=== PATIENT | female | born 1965 | race Caucasian/White ===

== ENCOUNTER 2019-12-17 19:35 | Emergency (ER) | payer SELFPAY ==
[2019-12-17 19:51] VITALS: BP 127/66; PULSE 98
[2019-12-17] MEDS ORDERED: Sodium Chloride 0.9% 10 ML Syringe FLUSH PRN (20:03)
[2019-12-17] MEDS ORDERED: Sodium Chloride 0.9% 1,000 ML IV ONE (20:03)
[2019-12-17] MEDS ORDERED: Ondansetron 4 MG/2 ML SDV IVPUSH ONE (20:03)
[2019-12-17] MEDS ORDERED: HYDROmorphone 0.5 MG/0.5 ML Syringe IVPUSH ONE ×2 (20:03→22:08)
--- NOTE | 2019-12-17 20:12 | EDM.PDOC ---
<Seema Hansen Donna - Last Filed: 12/17/19 22:29> ED HPI GENERAL MEDICAL PROBLEM - General Chief Complaint: General Stated Complaint: NECK PAIN Time Seen by Provider: 12/17/19 19:48 Source of Information: Reports: Patient, RN Notes Reviewed History Limitations: Reports: No Limitations - History of Present Illness INITIAL COMMENTS - FREE TEXT/NARRATIVE: Patient is a 54-year-old female who presents to the ED for evaluation of a neck issue. 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 Andry Rouse ENT from the dates 11/28/2019- 12/04/2019. She had a recent follow up visit and returned to [place] 12/15/2019. She notes she does have an appointment with Dr. Connolly, her oncologist Thursday, to discuss plan of care for radiation therapy. She also states that she is to have a G-tube placed for meds and nutrition. Patient notes however today, that the incision on her neck seems to be widening, and is dehiscent, and she is noticing some green drainage on the bandages when she removes them. She states that she also had a tracheotomy, and this is healing. She was supposed to have a NG tube placed for sustenance, but this became clogged, and she sneezed on the way home from the [facility], it became dislodged. She has been using boost, applesauce, and water for nutrition and this seems to be going well for her. Patient notes that she does have some pain and redness in the left lateral leg, where they had to take a bone graft to replace part of the mandible. She states the leg is causing most of the pain, and the neck wound is not very painful. Patient herself denies any fever/chills, cough/shortness of breath, nausea/vomiting/diarrhea. 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 recent surgery 2019 wide local excision left retromolar trigone mandible, mandiblectomy, partial left neck dissection, tracheostomy, free flap fibula Other Respiratory Surgeries/Procedures: recent trracheostomy Female Surgical History: Reports: Tubal Ligation Musculoskeletal Surgical History: Reports: Other (See Below) Other Musculoskeletal Surgeries/Procedures:: recent bone graft from left fibula Social & Family History - Tobacco Use Years of Tobacco use: 30 Used Tobacco, but Quit: Yes Month/Year Tobacco Last Used: November 27 2019 - Caffeine Use Caffeine Use: Reports: Coffee, Energy Drinks, Soda - Recreational Drug Use Recreational Drug Use: No ED ROS GENERAL - Review of Systems Review Of Systems: Comprehensive ROS is negative, except as noted in HPI. ED EXAM, GENERAL - Physical Exam Exam: See Below Exam Limited By: No Limitations General Appearance: Alert, WD/WN, No Apparent Distress Nose: Normal Inspection Throat/Mouth: Normal Inspection, Normal Lips, Normal Oropharynx Head: Atraumatic, Normocephalic Neck: Supple, Non-Tender, Other (There is a incision to the left anterior neck, the beginning of the incision, and the end of the incision does seem to be parting, and dehiscent, there is some green/padgett purulent drainage coming from the wounds. This is somewhat malodorous. Patient notes this is not painful. The areas that are open, are roughly 3 to 5 cm in length.) Respiratory/Chest: No Respiratory Distress, Lungs Clear, Normal Breath Sounds, No Accessory Muscle Use, Chest Non-Tender Extremities: Normal Range of Motion, Normal Capillary Refill, Leg Pain (Left distal lateral cart[place]a, healing surgical wound, with surrounding erythema and tenderness. No obvious drainage noted in this area patient notes this is tender to the touch.) Neurological: Alert, Oriented, Normal Cognition, No Motor/Sensory Deficits Psychiatric: Normal Affect, Normal Mood Skin Exam: Warm, Dry, Normal Color, No Rash, Other (See extremity and neck exam for further detail) Course - Re-Assessments/Exams Free Text/Narrative Re-Assessment/Exam: 12/17/19 20:13 Patient presents to the ED for the evaluation of her neck wound, and pain in her left lateral leg. She does appear to have a cellulitis on the left leg, and her neck wound is dehiscent, with green/padgett purulent drainage noted, that is somewhat malodorous. I will discuss the case with Dr. Zhou for further management of the wounds on her neck. 12/17/19 21:09 Labs are fairly unremarkable, her WBC count is not elevated, metabolic panel looks okay. The ENT that did her surgery at [facility] was Andry Rouse. I am placing a call to the surgeon to discuss the case, as Dr. Zhou recommends transfer as this is a fresh surgical wound that has infection and may need debrided by the surgeon that did her initial surgery. I also do agree that the patient would be best served under the care of her surgeon for this complicati on. 12/17/19 21:49 I was able to talk with Dr. Carson Jose, he is part of Dr. Rouse's team at [facility], he states that the patient has been given a prescription for Augmentin, and she should continue this for 2 weeks, she is to be n.p.o., so he requests that we place an NG tube, until she can get her G-tube placed. He is requesting that we packed the wounds with iodoform gauze, and that she perform bandage changes twice daily. She is to be closely monitored, and should try to line up appointments with ENT in [place] to make sure that the wounds are healing appropriately. Patient notes that she does have a appointment with Dr. Connolly on Thursday, so she will have a clinic appointment then. Dr. Jose states if she is failing the Augmentin, into next week, then she can be placed on IV outpatient therapy for management. 12/17/19 22:09 At this time we will have nursing staff do outpatient wound management to the ER, tomorrow and possibly Thursday, and try to line something up with home health otherwise. We did do a [id number] meeting with the patient and her , patient was brought to the emergency department with dehiscent neck wounds. Patient is in need of home health services for wound management, disease education, and to educate the family on how to properly change the wound packing. Patient will likely need the services for 2 weeks. Patient will be followed mainly by Dr. Connolly, her oncologist. Departure - Departure Time of Disposition: 22:12 Disposition: Home, Self-Care 01 Condition: Serious Clinical Impression: Cellulitis of left leg Dehiscence of external surgical wound Qualifiers: Encounter type: initial encounter Qualified Code(s): T81.31XA - Disruption of external operation (surgical) wound, not elsewhere classified, initial encounter - Discharge Information *PRESCRIPTION DRUG MONITORING PROGRAM REVIEWED*: No *COPY OF PRESCRIPTION DRUG MONITORING REPORT IN PATIENT BARB: No Instructions: Wound Dehiscence, [id number] Referrals: PCP,Unknown [Ordering Only Provider] - Forms: ED Department Discharge Additional Instructions: You were evaluated in the ER today regarding your draining neck wounds, and leg pain. You do have a cellulitis around the surgical wound on your leg, and the neck wound, is draining some purulent material, which is suggestive of infection. You are already on Augmentin for antibiotics. I was in contact with your surgical team at [facility], they recommend packing your wounds in the neck with iodoform gauze 2 times daily, until the wounds start to heal. You will need to be on the Augmentin as well for 2 weeks. You did have an NG tube placed at today's visit, for nutrition and medication, as you are not to have any food or medications by mouth. This was a strict recommendation by your surgical team. You are to have a G-tube placed, sometime hopefully this week, so the NG tube can be removed at that time. We will provide outpatient wound management through the ER, to help keep this wound from getting worse, and so that we can keep a better eye on this from a medical standpoint. Please present to the ER for further wound management. Tentatively around the times of 9 AM and 5 PM if possible. I have also placed a home health order or referral for you to have wound management performed in the house, and to have your family members educated on how to change the packing, and for other general wound management. Please keep all your previously scheduled appointments for other providers. Your surgical team through [facility] does recommend that you do follow-up with a local ENT to make sure that your wound is healing as appropriate, the closest ENT providers we have will be in [place], Dr. Ronn Gacria is a provider in [place] that you could follow-up with if needed. However any ENT would be able to provide you with the services. Please return to the ER at any time if symptoms change or worsen. Sepsis Event Note (ED) - Evaluation Sepsis Screening Result: No Definite Risk <Ottoniel Zhou - Last Filed: 12/17/19 23:30> Course - Vital Signs Last Recorded V/S: Last Vital Signs Temp 36.6 C 12/17/19 19:45 Pulse 98 12/17/19 19:45 Resp 16 12/17/19 19:45 BP 127/66 12/17/19 19:45 Pulse Ox 98 12/17/19 19:45 - Orders/Labs/Meds Orders: Active Orders 24 hr Category Date Time Status Gastrointestinal Tube Mgmt [RC] ASDIRECTED Care 12/17/19 22:00 Active Peripheral IV Care [RC] . DIRECTED Care 12/17/19 20:03 Active Chest 1V Frontal [CR] Stat Exams 12/17/19 22:25 Taken Sodium Chloride 0.9% [Saline Flush] Med 12/17/19 20:03 Active 10 ml FLUSH ASDIRECTED PRN NG [Nasogastric Orogastric Tube Insertion] [OM.PC] Oth 12/17/19 22:00 Ordered Routine Peripheral IV Insertion Adult [OM.PC] Stat Oth 12/17/19 20:03 Ordered Medication Orders Sodium Chloride (Saline Flush) 10 ml FLUSH ASDIRECTED PRN PRN Reason: Keep Vein Open Last Admin: 12/17/19 20:21 Dose: 10 ml Documented by: RUFINA Labs: Laboratory Tests 12/17/19 12/17/19 12/17/19 Range/Units 20:23 20:23 20:33 WBC 8.08 (3.98-10.04) K/mm3 RBC 3.07 L (3.98-5.22) M/mm3 Hgb 10.1 L (11.2-15.7) gm/dl Hct 31.2 L (34.1-44.9) % MCV 101.6 H (79.4-94.8) fl MCH 32.9 H (25.6-32.2) pg MCHC 32.4 (32.2-35.5) g/dl RDW Std Deviation 46.9 H (36.4-46.3) fL Plt Count 506 H (182-369) K/mm3 MPV 9.3 L (9.4-12.3) fl Neutrophils % (Manual) 59 (40-60) % Band Neutrophils % 1 (0-10) % Lymphocytes % (Manual) 26 (20-40) % Atypical Lymphs % 0 % Monocytes % (Manual) 12 H (2-10) % Eosinophils % (Manual) 2 (0.7-5.8) % Basophils % (Manual) 0 L (0.1-1.2) Platelet Estimate Increased Plt Morphology Comment See note Anisocytosis 1+ slight Macrocytosis 1+ slight RBC Morph Comment Not Reportable Sodium 134 L (136-145) mEq/L Potassium 3.9 (3.5-5.1) mEq/L Chloride 94 L (98-107) mEq/L Carbon Dioxide 30 (21-32) mEq/L Anion Gap 13.9 (5-15) BUN 13 (7-18) mg/dL Creatinine 0.6 (0.55-1.02) mg/dL Est Cr Clr Drug Dosing 73.76 mL/min Estimated GFR (MDRD) > 60 (>60) mL/min BUN/Creatinine Ratio 21.7 H (14-18) Glucose 94 (74-106) mg/dL Calcium 9.3 (8.5-10.1) mg/dL Total Bilirubin 0.6 (0.2-1.0) mg/dL AST 24 (15-37) U/L ALT 35 (14-59) U/L Alkaline Phosphatase 87 (46-116) U/L Total Protein 8.1 (6.4-8.2) g/dl Albumin 3.1 L (3.4-5.0) g/dl Globulin 5.0 gm/dL Albumin/Globulin Ratio 0.6 L (1-2) MRSA (PCR) Positive H Meds: Medications Generic Name Dose Route Start Last Admin Trade Name Freq PRN Reason Stop Dose Admin Sodium Chloride 10 ml 12/17/19 20:03 12/17/19 20:21 Saline Flush FLUSH 10 ml ASDIRECTED PRN Administration Keep Vein Open Discontinued Medications Generic Name Dose Route Start Last Admin Trade Name Freq PRN Reason Stop Dose Admin Hydromorphone HCl 0.5 mg 12/17/19 20:03 12/17/19 20:20 Dilaudid IVPUSH 12/17/19 20:04 0.5 mg ONETIME ONE Administration Hydromorphone HCl 0.5 mg 12/17/19 22:08 12/17/19 22:22 Dilaudid IVPUSH 12/17/19 22:09 0.5 mg ONETIME ONE Administration Sodium Chloride 1,000 mls @ 999 mls/hr 12/17/19 20:03 12/17/19 20:21 Normal Saline IV 12/17/19 21:03 999 mls/hr ONETIME ONE Administration Piperacillin Sod/Tazobactam 100 mls @ 200 mls/hr 12/17/19 20:21 12/17/19 20:32 Sod 4.5 gm/ Sodium Chloride IV 12/17/19 20:50 200 mls/hr ONETIME ONE Administration Lidocaine HCl 10 ml 12/17/19 22:40 12/17/19 23:08 Xylocaine 2% Jelly MUCMEM 12/17/19 22:41 10 ml ONETIME ONE Administration Ondansetron HCl 4 mg 12/17/19 20:03 12/17/19 20:21 Zofran IVPUSH 12/17/19 20:04 4 mg ONETIME ONE Administration - Re-Assessments/Exams Free Text/Narrative Re-Assessment/Exam: 12/17/19 23:29 Post-NG tube placement portable chest x-ray reviewed. The cardiac silhouette is within normal limits. No pulmonary vascular congestion. No pleural effusions. No focal infiltrate. No pneumothorax. There is hyperinflation and bilateral diaphragmatic flattening, consistent with COPD. The NG tube is in the stomach via the esophagus. Formal read per the Radiologist pending. Departure - Departure Time of Disposition: 23:30 Sepsis Event Note (ED) - Focused Exam Vital Signs: Vital Signs Temp Pulse Resp BP Pulse Ox 12/17/19 19:45 36.6 C 98 16 127/66 98
[2019-12-17] MEDS ORDERED: Piperacillin/Tazobactam 4.5 GM in Sodium Chloride 0.9% 100 ML IV ONE (20:21)
[2019-12-17] MEDS ORDERED: Lidocaine 2% Jelly 10 ML Urojet MUCMEM ONE (22:40)
--- NOTE | 2019-12-19 08:51 | CR ---
Chest: Portable view of the chest was obtained. Comparison: No prior chest imaging. Heart size and mediastinum are normal. Capsular calcification is noted around breast prosthesis. Lungs are slightly hyperinflated raising the possibility of emphysematous change. Heart size and mediastinum are normal. Nasogastric tube is seen with tip lying in the area of the stomach. Bony structures show nothing acute. Impression: 1. Tip of nasogastric tube within the area of the stomach. 2. Probable emphysematous change. Diagnostic code #2 This report was dictated in MDT MTDD
== END 2019-12-17 23:39 | disposition home or self-care (01) ==
LOC: SUPCPDRO 19:35 → JD.ED 19:35
DX: T81.31XA Disruption of external operation (surgical) wound, not elsewhere classified, initial encounter (principal); L03.116 Cellulitis of left lower limb; Z87.891 Personal history of nicotine dependence
CPT/HCPCS: 36415; 43752; 71045; 80053; 85007; 85027; 87641; 96365; 96375; 96376; 99283; J1170; J2405; J2543; J7030; J7050; 99284

== ENCOUNTER 2020-10-11 14:44 | Emergency (ER) | payer OTHER ==
[2020-10-11 15:03] VITALS: BP 138/62; PULSE 102
--- NOTE | 2020-10-11 15:41 | EDM.PDOC ---
ED HPI GENERAL MEDICAL PROBLEM - General Chief Complaint: Gastrointestinal Problem Stated Complaint: PLUGGED FEEDING TUBE Time Seen by Provider: 10/11/20 15:35 - History of Present Illness INITIAL COMMENTS - FREE TEXT/NARRATIVE: 55-year-old female presents to the emergency room with a plug feeding tube. Patient has a feeding tube that was placed October of this last year. This was placed following a extensive removal of lower portion of her mouth and a neck exploration secondary to cancer. The patient has had this tube replaced at least once in the past. But today she cannot feed herself via the tube. Patient denies any pain and is otherwise doing well. 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 - Related Data Allergies Allergy/AdvReac Type Severity Reaction Status Date / Time No Known Allergies Allergy Verified 10/11/20 14:56 Home Meds: Home Meds Ibuprofen [Ibu] 400 mg PO QID PRN #40 tablet 04/17/18 [Rx] Acetaminophen [Tylenol] 650 mg GTUBE ASDIRECTED 10/11/20 [History] Morphine 15 mg PO Q4H PRN 10/11/20 [History] Naproxen 375 mg PO DAILY 10/11/20 [History] Past Medical History HEENT History: Reports: Impaired Vision Cardiovascular History: Reports: None Respiratory History: Reports: None Gastrointestinal History: Reports: None Genitourinary History: Reports: None 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 recent surgery 2019 wide local excision left retromolar trigone mandible, mandiblectomy, partial left neck dissection, tracheostomy, free flap fibula Other Respiratory Surgeries/Procedures: recent tracheostomy Female Surgical History: Reports: Tubal Ligation Musculoskeletal Surgical History: Reports: Other (See Below) Other Musculoskeletal Surgeries/Procedures:: recent bone graft from left fibula Social & Family History - Family History Family Medical History: No Pertinent Family History Oncologic: Reports: Breast, Lung - Tobacco Use Tobacco Use Status *Q: Current Every Day Tobacco User Years of Tobacco use: 40 Packs/Tins Daily: 1 - Caffeine Use Caffeine Use: Reports: None - Recreational Drug Use Recreational Drug Use: Yes Drug Use in Last 12 Months: No Recreational Drug Type: Reports: Marijuana/Hashish Recreational Drug Use Frequency: Not Used In Over 1 Year ED ROS GENERAL - Review of Systems Review Of Systems: See Below Constitutional: Reports: No Symptoms Respiratory: Reports: No Symptoms Cardiovascular: Reports: No Symptoms GI/Abdominal: Reports: Other (Just the plugged feeding tube). Denies: Abdominal Pain, Constipation, Diarrhea Skin: Reports: No Symptoms ED EXAM, GENERAL - Physical Exam Exam: See Below Exam Limited By: No Limitations General Appearance: Alert, No Apparent Distress Respiratory/Chest: No Respiratory Distress, Lungs Clear, Normal Breath Sounds Cardiovascular: Regular Rate, Rhythm, No Edema, No Murmur GI/Abdominal: Normal Bowel Sounds, Soft, Non-Tender, Other (G-tube in place) Course - Vital Signs Last Recorded V/S: Last Vital Signs Temp 36.2 C 10/11/20 15:01 Pulse 102 H 10/11/20 15:01 Resp 20 10/11/20 15:01 BP 138/62 10/11/20 15:01 Pulse Ox 100 10/11/20 15:01 - Re-Assessments/Exams Free Text/Narrative Re-Assessment/Exam: 10/11/20 15:43 Nursing has been attempting to get this cleared using warm water and [employer] no LOC is been found with this I did discuss patient's case with Dr. Estrada who recommends using pancreatic enzyme tablets crushed 1 with 650 mg tablet of bicarbonate mixed with 10 cc of water and let that soak in there however we do not have the pancreatic enzyme tablets at this hospital anymore. Nursing continues to work with this with no success. 10/11/20 16:35 Nursing continue to work with this somewhat. Without any success. The patient requests to be discharged and she will follow up with her surgeon in [place] that placed this, tomorrow morning. Departure - Departure Time of Disposition: 16:36 Disposition: Home, Self-Care 01 Clinical Impression: Malfunction of gastrostomy tube - Discharge Information Referrals: Era Taylor MD [Physician] - Forms: ED Department Discharge Additional Instructions: Return to the emergency room with any questions problems or worsening symptoms. Follow-up with your surgeon in the morning as we discussed. Sepsis Event Note (ED) - Evaluation Sepsis Screening Result: No Definite Risk - Focused Exam Vital Signs: Vital Signs Temp Pulse Resp BP Pulse Ox 10/11/20 15:01 36.2 C 102 H 20 138/62 100
== END 2020-10-11 16:40 | disposition home or self-care (01) ==
LOC: JD.ED 14:44
DX: K94.23 Gastrostomy malfunction (principal); Z72.0 Tobacco use
CPT/HCPCS: 99282; 99283

== ENCOUNTER → 2021-01-19 | Day surgery (SDC) | payer OTHER ==
[~2021-01-19] MED LIST: Bupivacaine 0.5%/EPINEPHrine 1:200,000 50 ML MDV ONE; Lactated Ringers 1,000 ML ONE; Lidocaine 1% 4 ML ONE; Midazolam 1 MG/ML 2 ML SDV ONE; Propofol 200 MG/20 ML SDV ONE; fentaNYL 100 MCG/2 ML SDV ONE
--- NOTE | 2021-01-19 12:01 | EDM.PDOC ---
ED HPI GENERAL MEDICAL PROBLEM - General Chief Complaint: General Stated Complaint: FEEDING TUBE FELL OUT Time Seen by Provider: 01/19/21 11:06 Source of Information: Reports: Patient, RN Notes Reviewed History Limitations: Reports: No Limitations - History of Present Illness INITIAL COMMENTS - FREE TEXT/NARRATIVE: Patient is a 55-year-old female who presents to the ER for the evaluation of having her feeding tube replaced. States that she has had a feeding tube in place for roughly 11 years, this did displace itself 2 days ago, and she went to a different ER, they were unable to reinsert that tube at that time. She states since then it has popped back out, she was unable to insert it herself. She is having a little bit of tenderness around the stoma, but no active drainage at this time. No fevers, no chills, no cough, no shortness of breath, no worsening sick-like symptoms. Has a history of lung cancer, that was pretty extensive, has a history of a trach as well. 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 recent surgery 2019 wide local excision left retromolar trigone mandible, mandiblectomy, partial left neck dissection, tracheostomy, free flap fibula Other Respiratory Surgeries/Procedures: recent tracheostomy Female Surgical History: Reports: Tubal Ligation Musculoskeletal Surgical History: Reports: Other (See Below) Other Musculoskeletal Surgeries/Procedures:: recent bone graft from left fibula Social & Family History - Family History Family Medical History: No Pertinent Family History Oncologic: Reports: Breast, Lung - Caffeine Use Caffeine Use: Reports: None ED ROS GENERAL - Review of Systems Review Of Systems: Comprehensive ROS is negative, except as noted in HPI. ED EXAM, GENERAL - Physical Exam Exam: See Below Exam Limited By: No Limitations General Appearance: Alert, WD/WN, No Apparent Distress Respiratory/Chest: No Respiratory Distress, Lungs Clear, Normal Breath Sounds, No Accessory Muscle Use, Chest Non-Tender Cardiovascular: Normal Peripheral Pulses, Regular Rate, Rhythm, No Edema Peripheral Pulses: 2+: Radial (L), Radial (R) GI/Abdominal: Normal Bowel Sounds, Soft, No Distention, No Mass, Tender (very slightly tender around stoma, this is located on the left mid abdomen.) Extremities: Normal Inspection, Normal Capillary Refill Neurological: Alert, Oriented, Normal Cognition, No Motor/Sensory Deficits Psychiatric: Normal Affect, Normal Mood Skin Exam: Warm, Dry, Intact, Normal Color, No Rash Course - Vital Signs Last Recorded V/S: Last Vital Signs Temp 96.9 F 01/19/21 10:56 Pulse 82 01/19/21 10:56 Resp 16 01/19/21 10:56 BP 145/98 H 01/19/21 10:56 Pulse Ox 98 01/19/21 10:56 - Orders/Labs/Meds Orders: Active Orders 24 hr Category Date Time Status Admission Status [Patient Status] [ADT] Routine ADT 01/19/21 11:52 Active Notify Provider Consults [RC] ASDIRECTED Care 01/19/21 11:59 Active Consult to Physician [CONS] Stat Cons 01/19/21 11:59 Active Schedule Procedure [COMM] Stat Oth 01/19/21 11:53 Ordered Meds: Medications Discontinued Medications Generic Name Dose Route Start Last Admin Trade Name Freq PRN Reason Stop Dose Admin Bupivacaine HCl/Epinephrine Bitart Confirm 01/19/21 12:22 Bupivacaine 0.5%/Epinephrine 1:200,000 50 Ml Mdv Administered 01/19/21 12:23 Dose 50 ml .ROUTE .STK-MED ONE Fentanyl Confirm 01/19/21 12:44 Fentanyl 100 Mcg/2 Ml Sdv Administered 01/19/21 12:45 Dose 100 mcg .ROUTE .STK-MED ONE Lidocaine HCl Confirm 01/19/21 12:44 Xylocaine-Mpf 1% Administered 01/19/21 12:45 Dose 4 mls @ as directed .ROUTE .STK-MED ONE Lactated Ringer's Confirm 01/19/21 13:22 Ringers, Lactated Administered 01/19/21 13:23 Dose 1,000 mls @ as directed .ROUTE .STK-MED ONE Midazolam HCl Confirm 01/19/21 12:44 Midazolam 1 Mg/Ml 2 Ml Sdv Administered 01/19/21 12:45 Dose 2 mg .ROUTE .STK-MED ONE Propofol Confirm 01/19/21 12:44 Propofol 200 Mg/20 Ml Sdv Administered 01/19/21 12:45 Dose 200 mg .ROUTE .STK-MED ONE - Re-Assessments/Exams Free Text/Narrative Re-Assessment/Exam: 01/19/21 11:58 Patient presents to the ER to have her feeding tube placed once again. Nursing staff, and myself did try to advance the feeding tube into the stoma, but were unsuccessful, there was slight bit of trauma noted with very minimal bleeding at this time. Patient was slightly uncomfortable during these attempts. I did call Dr. Eric, surgeon on-call, to see if he could place this under ultrasound guidance at bedside, and he was unable to do so, so she will be having to go to the OR for further management. Departure - Departure Time of Disposition: 12:00 Disposition: DC/Tfer to [facility] Condition: Good Clinical Impression: Dislodged gastrostomy tube - Discharge Information *PRESCRIPTION DRUG MONITORING PROGRAM REVIEWED*: No *COPY OF PRESCRIPTION DRUG MONITORING REPORT IN PATIENT BARB: No Sepsis Event Note (ED) - Evaluation Sepsis Screening Result: No Definite Risk - Focused Exam Vital Signs: Vital Signs Temp Pulse Resp BP Pulse Ox 01/19/21 10:56 96.9 F 82 16 145/98 H 98 - My Orders Last 24 Hours: My Active Orders 01/19/21 11:52 Admission Status [Patient Status] [ADT] Routine 01/19/21 11:53 Schedule Procedure [COMM] Stat 01/19/21 11:59 Notify Provider Consults [RC] ASDIRECTED Consult to Physician [CONS] Stat - Assessment/Plan Last 24 Hours: My Active Orders 01/19/21 11:52 Admission Status [Patient Status] [ADT] Routine 01/19/21 11:53 Schedule Procedure [COMM] Stat 01/19/21 11:59 Notify Provider Consults [RC] ASDIRECTED Consult to Physician [CONS] Stat
--- NOTE | 2021-01-19 12:08 | PCM.HP.2 ---
H&P History of Present Illness - General Date of Service: 01/19/21 Admit Problem/Dx: Admission Diagnosis/Problem Admission Diagnosis/Problem Feeding tube dysfunction Source of Information: Patient History Limitations: Reports: No Limitations - History of Present Illness Initial Comments - Free Text/Narative: Ms. Cali is a 55 yo woman with history of head and neck cancer s/p resection about 10 years ago, and she has had a gastrostomy feeding tube in [facility] since that time. It was dislodged about 48 hours ago, and although the patient attempted to replace it, it sounds like the tube was not in proper position and not functional since it was dislodged 48 hours ago. The tube is not able to be replaced in the ER, and an 8F watson catheter was successfully threaded through the gastrostomy and balloon inflated. Gastric contents were aspirated. Despite trying to dilate the tract with the watson balloon at bedside, the 16 F gastrostomy tube could not be safely advanced without resistance and discomfort to the patient. She drinks water by mouth but no other PO intake. She has a left sided orocutaneous fistula but reports that her esophagus is intact and she has had no abdominal or thoracic operations. She had her first dose of the uFaber COVID vaccine and is due for the next next month. She tested positive for COVID on 01/09 but has had no symptoms. - Related Data Allergies/Adverse Reactions: Allergies Allergy/AdvReac Type Severity Reaction Status Date / Time No Known Allergies Allergy Verified 10/11/20 14:56 Home Medications: Home Meds Ibuprofen [Ibu] 400 mg PO QID PRN #40 tablet 04/17/18 [Rx] Acetaminophen [Tylenol] 650 mg GTUBE ASDIRECTED 10/11/20 [History] Morphine 15 mg PO Q4H PRN 10/11/20 [History] Naproxen 375 mg PO DAILY 10/11/20 [History] Past Medical History HEENT History: Reports: Impaired Vision Cardiovascular History: Reports: None Respiratory History: Reports: None Gastrointestinal History: Reports: None Genitourinary History: Reports: None 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 recent surgery 2019 wide local excision left retromolar trigone mandible, mandiblectomy, partial left neck dissection, tracheostomy, free flap fibula Other Respiratory Surgeries/Procedures: recent tracheostomy Female Surgical History: Reports: Tubal Ligation Musculoskeletal Surgical History: Reports: Other (See Below) Other Musculoskeletal Surgeries/Procedures:: recent bone graft from left fibula Social & Family History - Family History Family Medical History: No Pertinent Family History Oncologic: Reports: Breast, Lung - Caffeine Use Caffeine Use: Reports: None H&P Review of Systems - Review of Systems: Review Of Systems: See Below General: Reports: No Symptoms HEENT: Reports: No Symptoms Pulmonary: Reports: No Symptoms Cardiovascular: Reports: No Symptoms Gastrointestinal: Reports: Difficulty Swallowing Genitourinary: Reports: No Symptoms Musculoskeletal: Reports: No Symptoms Skin: Reports: No Symptoms Exam - Exam Exam: See Below - Vital Signs Vital Signs: Last Vital Signs Temp 36.1 C 01/19/21 10:56 Pulse 82 01/19/21 10:56 Resp 16 01/19/21 10:56 BP 145/98 H 01/19/21 10:56 Pulse Ox 98 01/19/21 10:56 - Exam Quality Assessment: Supplemental Oxygen General: Alert, Oriented, Cooperative HEENT: Conjunctiva Clear Neck: Other (upper left neck spit fistula) Lungs: Normal Respiratory Effort Cardiovascular: Regular Rate, Regular Rhythm GI/Abdominal Exam: Other (gastrostomy is very narrow, barely able to pass 8 F watson successfully in to stomach) Skin: Warm, Dry Psychiatric: Normal Mood Sepsis Event Note - Evaluation Sepsis Screening Result: No Definite Risk - Focused Exam Vital Signs: Vital Signs Temp Pulse Resp BP Pulse Ox 01/19/21 10:56 36.1 C 82 16 145/98 H 98 Problem List Initiated/Reviewed/Updated: Yes Orders Last 24hrs: Active Orders 24 hr Category Date Time Status Admission Status [Patient Status] [ADT] Routine ADT 01/19/21 11:52 Active Notify Provider Consults [RC] ASDIRECTED Care 01/19/21 11:59 Active Consult to Physician [CONS] Stat Cons 01/19/21 11:59 Active Schedule Procedure [COMM] Stat Oth 01/19/21 11:53 Ordered Assessment/Plan Comment:: Gastrostomy feeding tube dislodged for 48 hours at least, with tract barely patent. 8F watson placed and inflated at bedside. Given her unclear remote history of treatment for head and neck cancer with apparent orocutaneous fistula or spit fistula, I am concerned about being able to access the stomach with an endoscope, if there is potentially strictured oropharynx or esophagus from radiation treatment. Plan for endoscopic PEG placement; the tract is held patent currently with watson catheter. If the stomach is inaccessible via endoscopy it may be necessary to balloon dilate the gastrostomy with sedation or proceed with laparoscopic assisted gastrostomy tube replacement. - Mortality Measure Prognosis:: Good
--- NOTE | 2021-01-19 12:39 | PCM.PREANE ---
Preanesthetic Assessment - Procedure Proposed Procedure: peg tube placement - Anesthesia/Transfusion/Family Hx Anesthesia History: Prior Anesthesia Without Reaction Family History of Anesthesia Reaction: No Transfusion History: No Prior Transfusion(s) - Review of Systems General: Weakness Pulmonary: No Symptoms Cardiovascular: No Symptoms Gastrointestinal: No Symptoms Neurological: Seizure (age 11), Gait Disturbance (from bone graft) Other: Reports: None - Physical Assessment NPO Status Date: 01/18/21 NPO Status Time: 00:00 Vital Signs: Last Vital Signs Temp 36.1 C 01/19/21 10:56 Pulse 82 01/19/21 10:56 Resp 16 01/19/21 10:56 BP 145/98 H 01/19/21 10:56 Pulse Ox 98 01/19/21 10:56 Height: 1.57 m ASA Class: 3 Mental Status: Alert & Oriented x3 Airway Class: Mallampati = 3 Dentition: Reports: Broken Tooth/Teeth, Missing Tooth/Teeth, Caries Thyro-Mental Finger Breadths: 2 Mouth Opening Finger Breadths: 1 ROM/Head Extension: Full Lungs: Clear to Auscultation, Normal Respiratory Effort Cardiovascular: Regular Rate, Regular Rhythm - Allergies Allergies/Adverse Reactions: Allergies Allergy/AdvReac Type Severity Reaction Status Date / Time No Known Allergies Allergy Verified 10/11/20 14:56 - Blood Blood Available: No Product(s) Available: None - Anesthesia Plan Pre-Op Medication Ordered: None - Acknowledgements Anesthesia Type Planned: MAC Pt an Appropriate Candidate for the Planned Anesthesia: Yes Alternatives and Risks of Anesthesia Discussed w Pt/Guardian: Yes Pt/Guardian Understands and Agrees with Anesthesia Plan: Yes PreAnesthesia Questionnaire HEENT History: Reports: Impaired Vision Cardiovascular History: Reports: None Respiratory History: Reports: None Gastrointestinal History: Reports: None Genitourinary History: Reports: None 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 recent surgery 2019 wide local excision left retromolar trigone mandible, mandiblectomy, partial left neck dissection, tracheostomy, free flap fibula Other Respiratory Surgeries/Procedures: recent tracheostomy Female Surgical History: Reports: Tubal Ligation Musculoskeletal Surgical History: Reports: Other (See Below) Other Musculoskeletal Surgeries/Procedures:: recent bone graft from left fibula - SUBSTANCE USE Tobacco Use Status *Q: Current Every Day Tobacco User Tobacco Use Within Last Twelve Months: Cigarettes Second Hand Smoke Exposure: Yes Days Per Week of Alcohol Use: 0 Number of Drinks Per Day: 0 Total Drinks Per Week: 0 Recreational Drug Use History: No - HOME MEDS Home Medications: Home Meds Ibuprofen [Ibu] 400 mg PO QID PRN #40 tablet 04/17/18 [Rx] Acetaminophen [Tylenol] 650 mg GTUBE ASDIRECTED 10/11/20 [History] Morphine 15 mg PO Q4H PRN 10/11/20 [History] Naproxen 375 mg PO DAILY 10/11/20 [History] - CURRENT (IN HOUSE) MEDS Current Meds: Current Medications Discontinued Medications Bupivacaine HCl/Epinephrine Bitart (Bupivacaine 0.5%/Epinephrine 1:200,000 50 Ml Mdv) Confirm Administered Dose 50 ml .ROUTE .STK-MED ONE Stop: 01/19/21 12:23
--- NOTE | 2021-01-19 13:24 | PCM.PRNOTE ---
- Free Text/Narrative Note: Date: 01/19/2021 Procedure: endoscopic replacement of gastrostomy feeding tube Indication: gastrostomy tube in place for about a year dislodged for past 48 hours, unable to safely replace at bedside Endoscopist: Adal Eric MD Findings: endoscope easily passed to stomach. Gastrostomy appeare big enough only to permit passage of the 8 F watson catheter. PEG kit used to replace feeding tube, proper positioning confirmed with endoscopy. 20 F 'pull' gastrostomy tube with mushroom cap anchor placed. Detailed Report: The patient was taken to the endoscopy suite. Time out was performed, monitored anesthesia care was initiated and a bit block was placed. The endoscope was inserted orally and advanced to the stomach with ease. The inflated balloon from the 8 F Watson catheter that had been previously placed was seen in the stomach. The catheter was removed, and the wire loop from the "Pull" percutaneous endo scopic gastrostomy kit was guided into the stomach via the gastrostomy under endoscopic visualization. The snare was then passed through the scope and the wire loop was grasped and pulled up through the mouth as the scope was withdrawn. The 20 F gastrostomy tube was secured to the wire loop and pulled down through the mouth and out through the abdominal wall. The endoscope was reinserted to confirm good positioning of the mushroom cap anchor. The bumper was placed on the tube to secure its position at the abdominal wall loosely. The patient tolerated the procedure well.
--- NOTE | 2021-01-19 13:36 | PCM48HPAN ---
Post Anesthesia Note - EVALUATION WITHIN 48HRS OF ANESTHETIC Vital Signs in Normal Range: Yes Patient Participated in Evaluation: Yes Respiratory Function Stable: Yes Airway Patent: Yes Cardiovascular Function Stable: Yes Hydration Status Stable: Yes Pain Control Satisfactory: Yes Nausea and Vomiting Control Satisfactory: Yes Mental Status Recovered: Yes Vital Signs: Last Vital Signs Temp 36.1 C 01/19/21 10:56 Pulse 82 01/19/21 10:56 Resp 16 01/19/21 10:56 BP 145/98 H 01/19/21 10:56 Pulse Ox 98 01/19/21 10:56 - COMMENTS/OBSERVATIONS Free Text/Narrative:: no anesthesia complications noted
[2021-01-19 15:00] VITALS: BP 134/70; PULSE 102
== END ==
LOC: JD.ED 10:37 → JD.SDS 11:52
PROVIDERS: ATTEND Surgery
DX: K94.23 Gastrostomy malfunction (principal); Z85.118 Personal history of other malignant neoplasm of bronchus and lung; Z85.830 Personal history of malignant neoplasm of bone; Z85.818 Personal history of malignant neoplasm of other sites of lip, oral cavity, and pharynx
CPT/HCPCS: 43246; J2250; J2704; J7120; 00731; 99284; 99284-25; J3010; J3490

== ENCOUNTER 2022-11-17 14:04 | Emergency (ER) | payer MEDICARE, OTHER ==
[2022-11-17 15:20] VITALS: BP 125/61; PULSE 88
== END 2022-11-17 15:10 | disposition home or self-care (01) ==
LOC: JD.ED 14:04
DX: K94.23 Gastrostomy malfunction (principal); F17.210 Nicotine dependence, cigarettes, uncomplicated
CPT/HCPCS: 43762; 99282-25; 99283

== ENCOUNTER 2023-10-25 11:15 | Inpatient (IN) | payer MEDICARE, OTHER ==
[2023-10-25] MEDS ORDERED: Sodium Chloride 0.9% 10 ML Syringe FLUSH PRN (11:53)
[2023-10-25] MEDS ORDERED: Ondansetron 4 MG Tab.DIS PO PRN (12:03)
[2023-10-25] MEDS ORDERED: Acetaminophen 325 MG Tab PO PRN (12:03)
[2023-10-25] MEDS ORDERED: Ondansetron 4 MG/2 ML SDV IV PRN (12:03)
[2023-10-25 12:27] LABS: BASOPHILS PERCENT AUTO 0.2 % (0.0-1.0); EOSINOPHILS ABSOLUTE AUTO 0.2 K/mm3 (0.0-0.4); EOSINOPHILS PERCENT AUTO 1.4 % (0.0-6.0); HEMATOCRIT 38.2 % (37.0-47.0); HEMOGLOBIN 13.2 gm/dl (12.0-16.0); IMMATURE GRAN ABSOLUTE AUTO 0.04 K/mm3 (0.00-0.05); IMMATURE GRAN PERCENT AUTO 0.3 % (0.0-0.4); LYMPHOCYTES ABSOLUTE AUTO 1.1 K/mm3 (1.0-4.8); LYMPHOCYTES PERCENT AUTO 7.9 % (24.0-44.0); MEAN CORPUSCULAR HEMOGLOBIN 33.2 pg (28.0-32.0); MEAN CORPUSCULAR HGB CONC 34.6 g/dl (32.0-36.0); MEAN CORPUSCULAR VOLUME 96.2 fl (83.0-99.0); MEAN PLATELET VOLUME 9.4 fl (9.4-12.3); MONOCYTES PERCENT AUTO 7.1 % (0.0-8.0); NEUTROPHILS ABSOLUTE AUTO 11.1 K/mm3 (1.8-7.7); NEUTROPHILS PERCENT AUTO 83.1 % (41.0-71.0); PLATELET COUNT,PLT 461 K/mm3 (150-400); RED BLOOD CELL COUNT 3.97 M/mm3 (4.10-5.30); WHITE BLOOD CELL COUNT,WBC 13.37 K/mm3 (3.9-11.3)
[2023-10-25] MEDS: Dextrose 5%-0.45% NaCl 1,000 ML IV SCH (12:30)
[2023-10-25] MEDS: Nystatin Susp 100,000 Unit/ML 5 ML UD Cup PO SCH (12:30)
[2023-10-25 12:46] LABS: A/G RATIO 0.7 (1-2); ALBUMIN 3.3 g/dl (3.4-5.0); ANION GAP 11.3 (5-15); BILIRUBIN TOTAL 0.2 mg/dL (0.2-1.0); BUN/CREATININE RATIO 26.7 (14-18); CALCIUM 9.8 mg/dL (8.5-10.1); CREATININE 0.6 mg/dL (0.55-1.02); EST CRCL DRUG DOSING (CG) 54.96 mL/min; MAGNESIUM 1.8 mg/dL (1.8-2.4); PHOSPHORUS 3.1 mg/dL (2.6-4.7); POTASSIUM,K 3.3 mEq/L (3.5-5.1); PROTEIN TOTAL,TP 8.4 g/dl (6.4-8.2)
[2023-10-25 13:58] LABS: APPEARANCE,URINE CLEAR (Clear); BILIRUBIN,URINE NEGATIVE (Negative); COLOR,URINE DARK YELLOW (Yellow); GLUCOSE,URINE NEGATIVE (Negative); KETONES,URINE NEGATIVE (Negative); LEUKOCYTE ESTERASE,URINE NEGATIVE (Negative); NITRITE,URINE NEGATIVE (Negative); OCCULT BLOOD,URINE NEGATIVE (Negative); PH,URINE 6.5 (5.0-8.0); PROTEIN,URINE 2+ (Negative); UROBILINOGEN,URINE 0.2 (0.2-1.0)
[2023-10-25 14:05] LABS: BACTERIA,URINE FEW /hpf (FEW); MUCUS,URINE MODERATE /hpf (FEW); RBC,URINE 0-5 /hpf (0-5)
[2023-10-25] MEDS: Potassium Chloride 10 MEQ in Premix Bag 1 BAG IV ONE (17:01)
[2023-10-25] MEDS: HYDROmorphone 0.5 MG/0.5 ML Syringe IVPUSH PRN (19:37)
[2023-10-25] MEDS ORDERED: Sodium Chloride 0.9% 10 ML Syringe FLUSH SCH (21:00)
[2023-10-25] MEDS: Morphine 15 MG Tab PO PRN (23:00)
[2023-10-26 05:47] LABS: HEMATOCRIT 31.6 % (37.0-47.0); MEAN CORPUSCULAR HEMOGLOBIN 33.1 pg (28.0-32.0); MEAN CORPUSCULAR HGB CONC 34.8 g/dl (32.0-36.0); MEAN CORPUSCULAR VOLUME 95.2 fl (83.0-99.0); MEAN PLATELET VOLUME 9.4 fl (9.4-12.3); RED BLOOD CELL COUNT 3.32 M/mm3 (4.10-5.30)
[2023-10-26 05:58] LABS: PLATELET COUNT,PLT 373 K/mm3 (150-400)
[2023-10-26 06:27] LABS: ANION GAP 10.1 (5-15); CALCIUM 8.8 mg/dL (8.5-10.1); CREATININE 0.5 mg/dL (0.55-1.02); EST CRCL DRUG DOSING (CG) 68.62 mL/min; POTASSIUM,K 3.1 mEq/L (3.5-5.1); TSH 6.249 uIU/mL (0.358-3.74)
[2023-10-26 06:43] LABS: T4 FREE 1.05 ng/dL (0.76-1.46)
[2023-10-26] MEDS: Potassium Chloride 10 MEQ in Premix Bag 1 BAG IV ONE (10:55)
[2023-10-26] MEDS: Acetaminophen/oxyCODONE 325-5 MG Tab PO PRN (12:51)
[2023-10-27 05:43] LABS: HEMATOCRIT 32.4 % (37.0-47.0); HEMOGLOBIN 11.3 gm/dl (12.0-16.0); MEAN CORPUSCULAR HEMOGLOBIN 32.9 pg (28.0-32.0); MEAN CORPUSCULAR HGB CONC 34.9 g/dl (32.0-36.0); MEAN CORPUSCULAR VOLUME 94.5 fl (83.0-99.0); MEAN PLATELET VOLUME 9.9 fl (9.4-12.3); PLATELET COUNT,PLT 348 K/mm3 (150-400); RED BLOOD CELL COUNT 3.43 M/mm3 (4.10-5.30); WHITE BLOOD CELL COUNT,WBC 8.38 K/mm3 (3.9-11.3)
[2023-10-27] MEDS: Levothyroxine 25 MCG Tab PO SCH (05:43)
[2023-10-27 05:45] LABS: ANION GAP 10.9 (5-15); CALCIUM 9.3 mg/dL (8.5-10.1); CREATININE 0.5 mg/dL (0.55-1.02); EST CRCL DRUG DOSING (CG) 68.62 mL/min; POTASSIUM,K 2.9 mEq/L (3.5-5.1)
[2023-10-27] MEDS: Venlafaxine 37.5 MG Tab GTUBE SCH (06:44)
[2023-10-27] MEDS: Pantoprazole 40 MG Tab.CR PO SCH (06:45)
[2023-10-27] MEDS: Potassium Chloride 20 MEQ Tab.ER PO ONE ×2 (10:31→12:22)
[2023-10-27] MEDS: Sodium Chloride 0.9% 500 ML IV ONE (10:38)
[2023-10-27] MEDS: Potassium Chloride 10 MEQ in Premix Bag 1 BAG IV SCH (11:06)
[2023-10-27 16:49] VITALS: BP 101/56; PULSE 96
[2023-10-27] MEDS ORDERED: Metoprolol Succinate 25 MG Tab.ER PO SCH (18:00)
[2023-10-27] MEDS ORDERED: Potassium Chloride 20 MEQ Tab.ER PO ONE (21:00)
[2023-10-28] MEDS ORDERED: Aspirin 81 MG Tab.Chew PO SCH (09:00)
[2023-10-28] MEDS ORDERED: Potassium Chloride 20 MEQ Tab.ER PO SCH (09:00)
== END 2023-10-27 15:00 | disposition home or self-care (01) | DRG 640 ==
LOC: JD.MS 11:15
PROVIDERS: ADMIT Internal Medicine; ATTEND Internal Medicine
DX: E86.0 Dehydration (principal); E43 Unspecified severe protein-calorie malnutrition; B37.0 Candidal stomatitis; R64 Cachexia; Z68.1 Body mass index [BMI] 19.9 or less, adult; H54.7 Unspecified visual loss; F31.9 Bipolar disorder, unspecified; F17.210 Nicotine dependence, cigarettes, uncomplicated; R19.7 Diarrhea, unspecified; E87.6 Hypokalemia; D72.829 Elevated white blood cell count, unspecified; R62.7 Adult failure to thrive; C76.0 Malignant neoplasm of head, face and neck; Z93.1 Gastrostomy status; Z79.82 Long term (current) use of aspirin; Z79.899 Other long term (current) drug therapy; Z90.89 Acquired absence of other organs; Z98.51 Tubal ligation status
CPT/HCPCS: 36415; 80048; 80053; 81001; 83735; 84100; 84439; 84443; 85025; 85027; 87177; 87209; 87328; 87329; 99222; 99231; 99239; A9270-GY; J1170; J3480; J7042